=== PATIENT | female | born 1965 | race Caucasian/White ===

== ENCOUNTER 2016-11-14 11:32 | Emergency (ER) | payer OTHER, SELFPAY | END 2016-11-14 12:30 | disposition home or self-care (01) | LOC: MADERS 11:32 | DX: H10.9 Unspecified conjunctivitis (principal); E05.00 Thyrotoxicosis with diffuse goiter without thyrotoxic crisis or storm; F17.210 Nicotine dependence, cigarettes, uncomplicated | CPT/HCPCS: 99282 ==

== ENCOUNTER 2019-05-04 18:33 | Emergency (ER) | payer OTHER, SELFPAY ==
[2019-05-04] MEDS ORDERED: Acetaminophen 325 MG TAB ONE (19:02)
[2019-05-04] MEDS ORDERED: Oseltamivir 75 MG CAP ONE (19:02)
--- NOTE | 2019-05-04 20:01 | RAD ---
TWO VIEWS OF THE CHEST: 05/04/19 HISTORY: Shortness of breath. FINDINGS: Cervical spine postoperative hardware present. No pneumothorax or pleural fluid. No focal consolidati on or alveolar edema. Heart and mediastinal contours are unremarkable. IMPRESSION: No acute findings. POS: [facility]
== END 2019-05-04 20:15 | disposition home or self-care (01) ==
LOC: MADERS 18:33
DX: J11.1 Influenza due to unidentified influenza virus with other respiratory manifestations (principal); E03.9 Hypothyroidism, unspecified; F17.210 Nicotine dependence, cigarettes, uncomplicated; Z79.899 Other long term (current) drug therapy
CPT/HCPCS: 71046; 87804; J7620

== ENCOUNTER 2019-10-25 18:18 | Emergency (ER) | payer OTHER ==
[2019-10-25 19:59] LABS: #Basophils 0.1 thou/uL (0.0-0.2); #Eosinphils 0.5 thou/uL (0.0-0.7); #Lymphocytes 3.1 thou/uL (1.20-3.40); #Neutrophils 6.2 thou/uL (1.40-6.50); %Eosinophils 4.3 % (0.0-10.0); %Lymphocytes 28.5 % (21.0-51.0); %Monocytes 9.4 % (0.0-10.0); %Neutrophils 56.8 % (42.0-75.0); Hemoglobin 12.2 g/dL (12.0-16.0); Mean Corpuscular HGB CONC 31.1 g/dL (32.0-36.0); Mean Corpuscular Hemoglobin 27.4 pg (27.0-31.0); Mean Corpuscular Volume 88.3 fL (78.0-98.0); Mean Platelet Volume 9.5 fL (7.4-10.4); Platelet Count 254 thou/uL (130-400); RBC Distribution Width 13.5 % (11.5-14.5); Red Blood Cell (RBC) Count 4.44 mill/uL (4.20-5.40); White Blood Cell (WBC) Count 10.9 thou/uL (4.8-10.8)
[2019-10-25 20:12] LABS: ALT (SGPT) 22 U/L (8-55); AST (SGOT) 19 U/L (5-34); Albumin 4.1 g/dL (3.5-5.0); Alkaline Phosphatase 150 U/L (40-110); Anion Gap 15 mmol/L (10-20); BUN (Urea Nitrogen) 16 mg/dL (9.8-20.1); Bilirubin, Total 0.4 mg/dL (0.2-1.2); Calc. Creatinine Clearance 0 mL/min (70-130); Calcium 8.8 mg/dL (7.8-10.44); Carbon Dioxide 23 mmol/L (22-29); Chloride 107 mmol/L (98-107); Estimated GFR-MDRD 49; Globulin 3.4 g/dL (2.4-3.5); Glucose 86 mg/dL (70-105); Potassium 3.5 mmol/L (3.5-5.1); Protein, Total 7.5 g/dL (6.0-8.3); Sodium 141 mmol/L (136-145)
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
[2019-10-25] MEDS ORDERED: Cyclobenzaprine 10 MG TAB ONE (21:35)
== END 2019-10-25 21:45 | disposition home or self-care (01) ==
LOC: MADERS 18:18
DX: S16.1XXA Strain of muscle, fascia and tendon at neck level, initial encounter (principal); M50.221 Other cervical disc displacement at C4-C5 level; E05.90 Thyrotoxicosis, unspecified without thyrotoxic crisis or storm; F17.210 Nicotine dependence, cigarettes, uncomplicated; Z79.899 Other long term (current) drug therapy; V49.49XA Driver injured in collision with other motor vehicles in traffic accident, initial encounter; Y92.410 Unspecified street and highway as the place of occurrence of the external cause
CPT/HCPCS: 36415; 70450; 72125; 80053; 85025

== ENCOUNTER 2020-04-25 22:58 | Emergency (ER) | payer OTHER ==
[2020-04-25] MEDS ORDERED: Acyclovir 200 mg Capsule ONE ×2 (23:37→23:38)
[2020-04-25] MEDS ORDERED: predniSONE 20 MG TAB ONE (23:38)
== END 2020-04-25 23:47 | disposition home or self-care (01) ==
LOC: MADERS 22:58
DX: G51.0 Bell's palsy (principal); F17.210 Nicotine dependence, cigarettes, uncomplicated
CPT/HCPCS: 99283; J7512